=== PATIENT | male | born 1960 | race Caucasian/White ===

== ENCOUNTER → 2024-10-31 08:15 | Outpatient (REF) | payer OTHER, SELFPAY | LOC: MRI 3T 08:15 | PROVIDERS: ATTENDING PHYSICIAN Physician Assistant Medical; FAMILY PHYSICIAN Internal Medicine | DX: M79.602 Pain in left arm (principal); M77.12 Lateral epicondylitis, left elbow; S46.312A Strain of muscle, fascia and tendon of triceps, left arm, initial encounter | CPT/HCPCS: 73221 ==

== ENCOUNTER → 2025-02-02 09:24 | Outpatient (REF) | payer OTHER, SELFPAY | LOC: HWRAD 09:24 | PROVIDERS: ATTENDING PHYSICIAN Internal Medicine | DX: R79.89 Other specified abnormal findings of blood chemistry (principal) | CPT/HCPCS: 76700 ==